=== PATIENT | female | born 2000 | race Caucasian/White ===

== ENCOUNTER 2018-12-19 17:00 | Outpatient (CLI) | payer OTHER ==
--- NOTE | 2018-12-19 17:10 | NUR ---
Patient ambulatory to 2 with significant other and mother, changed into gown, FHR/TOCO monitors placed and explained. Patient states "We moved here in August and we have had a hard time getting a doctor in [place]. I seen Dr. Starks in [place] about five times, this is my first and I have no complications, I have been dianna all week but have become more regular today and have felt some fluid come out when I contract" Plan of care discussed and assessment completed. 1730: SVE-/-2 and amniotest negative. Questions answered and will continue to monitor.
[2018-12-19] MEDS ORDERED: CONCEPT DHA1 CAP PO (17:26)
[2018-12-19 18:00] VITALS: BP 133/91; PULSE 84
[2018-12-19 18:49] VITALS: BP 111/70
== END 2018-12-19 19:25 | disposition home or self-care (01) ==
LOC: LDRO 17:00
DX: O62.9 Abnormality of forces of labor, unspecified (principal); Z3A.38 38 weeks gestation of pregnancy

== ENCOUNTER 2019-01-01 07:07 | Inpatient (IN) | payer OTHER ==
[2019-01-01] VITALS (23 sets, daily range): BP systolic 116–150; BP diastolic 60–97; PULSE 65–100; TEMP 97.8–98.4
[~2019-01-01] VITALS: Ht 167.6 cm; Wt 70.0 kg
[~2019-01-01 07:07] MED LIST: CONCEPT DHA1 CAP PO
--- NOTE | 2019-01-01 07:20 | NUR ---
Patient ambulatory to LR6 with fiance, changed into gown, FHR/TOCO monitor on and explained. Patient states she lost her mucous plug last night and has been dianna since 9910-8941 this am and had a little bloody show. Patient very uncomfortable and having to breath through contractions. SVE-- and small amount of bloody show. Plan of care discusssed. 0840: Dr Funez at bedside and assessing patient and FHR strip. SVE per physician /2 and orders to admit patient at this time and can have epidural when she wants. Patient requests epidural and Alivia CHAUDHRY notified. 0910: FHR monitor intermittently tracing maternal heart rate and monitor adjusted. 0915: IV started per Daniel BARRON in right wrist, blood obtained and to lab, LR infusing. 30: Report given to Rell BARRON and takes over at this time.
[2019-01-01] MEDS ORDERED: BENADRYL25 M2 PO (07:30)
[2019-01-01] MEDS ORDERED: TYLENOL 325MG325 MG PO (07:30)
--- NOTE | 2019-01-01 09:30 | NUR ---
Report received from Antonio BARRON. Pt to sitting position for epidural. consent signed. Alivia AUDITING CLERK at bedside and risks of procedure reviewed. Epidural placed, test dose at 0953. Tolerated well. After epidural, pt repositioned to left side. 1010:Pt very comfortable with epidural. 1100:Barron catheter placed. SVE: /0 with very bulgy bag of tim. Pericare done. 1109:Dr Griffiths called and updated. Will be here around 1200 to evaluate.
[2019-01-01 09:39] LABS: BASO % 0.2 % (0.0-2.0); EOS % 0.1 % (0-4.0); GRAN # 11.2 (1.4-6.5); GRAN % 85.6 % (42.2-75.2); HEMATOCRIT 41.2 % (35.0-45.0); HEMOGLOBIN 13.9 g/dl (12.0-15.0); LYMPH # 1.1 (1.2-3.4); LYMPH % 8.5 % (20.0-51.0); MEAN CELL VOLUME 92 fl (80.0-95.0); MEAN CORPUSCULAR HEMOGLOBIN 31 pg (26.0-32.0); MEAN CORPUSCULAR HGB CONC 34 g/dl (33.0-37.0); MEAN PLATELET VOLUME 11.7 fl (7.4-10.4); MONO # 0.6 (0.1-0.6); MONO % 4.8 % (1.7-9.3); PLATELET COUNT 181 K/mm3 (130-400); RED BLOOD COUNT 4.48 M/mm3 (4.10-5.30); REDCELL DISTRIBUTION WIDTH-CV 12.1 % (11.5-14.5)
--- NOTE | 2019-01-01 12:00 | NUR ---
Dr Griffiths here and SVE: /-1. AROM, clear fluid noted. Recurrent variable decelerations noted. 1230:Pt feeling pressure, SVE: /-1. 1249:Dr Griffiths here and at bedside. SVE: complete+1. Pt instructed on how to push and begins pushing with contractions. Barron catheter removed. Pt continues to push for 22minutes. Pt prepped for delivery. 1312: of head and shoulder. Nuchal x1. cord clamped and in care of Puneet. 1st degree laceration repaired by physician. 1315:Spontaneous delivery of placenta. LR with pitocin infusing per protocol. Fundus firm, bleeding WNL. Pericare done and ice pack placed.
[2019-01-01 14:19] LABS: TRICYCLIC ANTIDEPRESS URINE NEGATIVE
--- NOTE | 2019-01-01 16:05 | NUR ---
Bladder distended. Lochia WNL. Perineum swollen. Patient up to bathroom with RN standby assist. Unable to void at this time. Patient returns to bed. This RN attempted to straight cath patient, unable to locate urethra due to swelling. to bedside to assess patient. Barron catheter placed by provider. Clean gown, underwear, and ice pack in place. Patient to Room 218 via wheelchair.
[2019-01-01] MEDS ORDERED: PERCOCET 325 MG1 TA2 PO (17:18)
[2019-01-02 02:30] VITALS: BP 108/59; PULSE 89
[2019-01-02 07:15] VITALS: BP 113/69; PULSE 68; TEMP 98.5
--- NOTE | 2019-01-02 13:31 | NUR ---
SW attempted to meet with patient. Patient not in room at the time. SW asked nurse to contact SW when patient returns.
--- NOTE | 2019-01-02 14:07 | NUR ---
PATIENT RETURNED TO UNIT AT THIS TIME.
--- NOTE | 2019-01-02 14:25 | NUR ---
SW met with patient, patient's boyfriend/father of baby, and patient's mother. Patient is a new mother and has a history of depression. Patient reports she has gone to therapy when she was living in [place], [place] but she never felt a good connection with any therapist she has seen. Patient is also not on any medication for depression. SW provided resources for new mother/infants as well as mental health resources. Patient reports she will utilize them if needed. Patient reports she has a lot of family support from her parents, boyfriend, and friends. Patient lives with her boyfriend but will be staying with her mother during the day while he is at work. Patient had questions about insurance and social security card for baby. SW provided the social security office number and address. SW also reported she will contact the financial counselor to assist patient with insurance information. SW reported back to nurse.
[2019-01-02 17:15] VITALS: BP 116/69; PULSE 72; TEMP 98
[2019-01-02 22:00] VITALS: BP 114/61; PULSE 67; TEMP 98.4
[2019-01-03 08:00] VITALS: BP 120/75; PULSE 80; TEMP 98
== END 2019-01-03 12:45 | disposition home or self-care (01) | DRG 807 ==
LOC: LDRO 07:07 → LDR 08:00 → OB 08:00
PROVIDERS: ADMIT Obstetrics & Gynecology
PROC: 10E0XZZ Delivery of Products of Conception, External Approach (ICD-10-PCS; principal; 2019-01-01)
PROC: 0HQ9XZZ Repair Perineum Skin, External Approach (ICD-10-PCS; 2019-01-01)
PROC: 10907ZC Drainage of Amniotic Fluid, Therapeutic from Products of Conception, Via Natural or Artificial Opening (ICD-10-PCS; 2019-01-01)
DX: O99.344 Other mental disorders complicating childbirth (principal); Z37.0 Single live birth; F41.9 Anxiety disorder, unspecified; F32.9 Major depressive disorder, single episode, unspecified; O69.1XX0 Labor and delivery complicated by cord around neck, with compression, not applicable or unspecified; O70.0 First degree perineal laceration during delivery; Z3A.40 40 weeks gestation of pregnancy
CPT/HCPCS: J2590; J7120

== ENCOUNTER 2019-01-23 20:56 | Emergency (ER) | payer OTHER ==
[~2019-01-23] VITALS: Ht 167.6 cm; Wt 63.2 kg
[~2019-01-23 20:56] MED LIST changes: +BENADRYL25 M2 PO; +PERCOCET 325 MG1 TA2 PO; +TYLENOL 325MG325 MG PO
[2019-01-23 21:14] VITALS: BP 130/84
[2019-01-23 21:36] LABS: COLLECTION METHOD CLEAN CATCH
[2019-01-23 22:00] LABS: MUCOUS Present /lpf; PH 5 (5-8); SQUAMOUS EPITHELIAL None Seen /hpf; URINE APPEARANCE Clear; URINE BACTERIA None Seen /hpf; URINE BILIRUBIN Negative (NEGATIVE); URINE BLOOD Negative (NEGATIVE); URINE COLOR Yellow; URINE GLUCOSE Negative (NEGATIVE); URINE KETONE Negative (NEGATIVE); URINE LEUKOCYTE ESTERASE Negative (NEGATIVE); URINE NITRATE Negative (NEGATIVE); URINE PROTEIN(semi-quant) Negative (NEGATIVE); URINE RBC 0-2 /hpf
[2019-01-23] MEDS ORDERED: OMNICEF 300MG300 MG PO (22:04)
[2019-01-23 22:42] VITALS: PULSE 74; TEMP 98.2
== END 2019-01-23 22:45 | disposition home or self-care (01) ==
LOC: COL.ER 20:56
PROVIDERS: Physician Assistant
DX: R30.0 Dysuria (principal)